=== PATIENT | female | born 1985 | race African-American/Black ===

== ENCOUNTER 2021-12-06 19:21 | Inpatient (IN) ==
[2021-12-06] MEDS ORDERED: miSOPROStoL 200 MCG TABLET RECTAL PRN (19:46)
[2021-12-06] MEDS ORDERED: BUTORPHANOL 1 MG/ML VIAL IV PRN (19:46)
[2021-12-06] MEDS ORDERED: TRANEXAMIC ACID 1,000 MG in SODIUM CHLORIDE 0.9% 100 ML IV PRN (19:46)
[2021-12-06] MEDS ORDERED: ACETAMINOPHEN 500 MG TABLET PO PRN (19:46)
[2021-12-06] MEDS ORDERED: ONDANSETRON 4 MG/2 ML VIAL IV PRN (19:46)
[2021-12-06] MEDS ORDERED: CARBOPROST TROMETHAMINE 250 MCG/ML AMP IM PRN (19:46)
[2021-12-06] MEDS ORDERED: LACTATED RINGERS 500 ML IV PRN (19:46)
[2021-12-06] MEDS ORDERED: BUTORPHANOL 2 MG/ML VIAL IV PRN (19:46)
[2021-12-06] MEDS ORDERED: MEPERIDINE 50 MG/1 ML VIAL IV PRN (19:46)
[2021-12-06] MEDS ORDERED: MEPERIDINE 25 MG/1 ML VIAL IV PRN (19:46)
[2021-12-06] MEDS ORDERED: METHYLERGONOVINE 0.2 MG/1 ML AMP IM PRN (19:46)
[2021-12-06] MEDS ORDERED: OXYTOCIN/LR 20 UNIT/1,000 ML BAG IV ONE (19:46)
[2021-12-06 20:17] LABS: Basophils % 0.2 % (0.0-0.8); Eosinophils # 0.1 10*3/uL (0.0-0.87); Eosinophils % 0.9 % (0.00-10.9); Hematocrit 37.2 VOL% (35.7-47.0); Hemoglobin 12.6 GM/DL (12.0-16.0); Immature Granulocytes % 0.3 %; Immature Granulocytes Absolute 0.03 #; Lymphocytes # 2.6 10*3/uL (1.4-4.0); Mean Corpuscular HGB Conc 33.9 GM/DL (32-36); Mean Corpuscular Volume 89.2 FL (87-102); Mean Platelet Volume 9.7 FL (9.6-12.0); Monocytes % 10.5 % (1.7-12.7); Neutrophils % 60.1 % (38.7-73.9); Platelet Count 227 T/CUMM (130-400); Red Blood Count 4.17 MC/CUMM (3.8-5.5); Red Cell Distribution Width 13.6 % (9.3-17.3); White Blood Count 9.4 T/CUMM (4-12)
[2021-12-06 20:37] LABS: Alanine Aminotransferase 15 U/L (13-56); Albumin 2.9 G/DL (3.4-5.0); Alkaline Phosphatase 75 U/L (45-117); Aspartate Amino Transferase 16 U/L (0-37); Bilirubin,Total < 0.39 MG/DL (0.20-1.00); Blood Urea Nitrogen 5 MG/DL (7-18); Calcium 8.9 MG/DL (8.5-10.1); Carbon Dioxide 20 MMOL/L (21-32); Chloride 108 MMOL/L (98-107); Glucose 94 MG/DL (74-106); Osmolality,Calculated 269.8 MOS/KG (273-304); Potassium 3.6 MMOL/L (3.5-5.1); Sodium 137 MMOL/L (136-145); Total Protein 6.6 G/DL (6.4-8.2)
[2021-12-07] MEDS: LACTATED RINGERS 1,000 ML IV SCH ×2 (00:40→04:35)
[2021-12-07] MEDS ORDERED: ePHEDrine 50 MG/ML VIAL IV PRN ×2 (03:52→03:54)
[2021-12-07] MEDS ORDERED: LACTATED RINGERS 500 ML IV ONE (03:52)
[2021-12-07] MEDS ORDERED: FAMOTIDINE 20 MG/2 ML VIAL IV ONE (03:52)
[2021-12-07] MEDS ORDERED: CITRIC ACID/SODIUM CITRATE 30 ML UDCUP PO ONE (03:52)
[2021-12-07] MEDS ORDERED: PROMETHAZINE 25 MG/1 ML VIAL IM ONE (03:54)
[2021-12-07] MEDS ORDERED: hydrOXYzine HCL 25 MG/1 ML VIAL IM PRN (03:54)
[2021-12-07] MEDS ORDERED: NALOXONE 0.4 MG/ML VIAL IV PRN (03:54)
[2021-12-07] MEDS ORDERED: ONDANSETRON 4 MG/2 ML VIAL IV ONE (03:54)
[2021-12-07] MEDS ORDERED: diphenhydrAMINE 50 MG/1 ML VIAL IV PRN ×2 (03:54)
[2021-12-07] MEDS ORDERED: fentaNYL 2 MCG/ROPIV 0.2% EPID 100 ML EPIDURAL SCH (04:00)
[2021-12-07 05:15] LABS: Bacteria,Urine Occasional /HPF (Few); Bilirubin,Urine Negative (Negative); Blood, Urine Negative (Negative); Glucose,Urine (UA) Negative (Negative); Ketones,Urine 5 mg/dL (Negative); Mucus,Urine Few /LPF (Occasional); Nitrite,Urine Negative (Negative); Protein,Urine Negative (Negative); Squamous Epithelial Cell,Urine Occasional /HPF (0-10); Urine Appearance Slightly Hazy (Clear); Urine Color Yellow (Yellow); Urine Specific Gravity 1.015 (1.001-1.035); Urine Urobilinogen < 2.0 eU/dL (<2.0)
[2021-12-07] MEDS ORDERED: OXYTOCIN/LR 20 UNIT/1,000 ML BAG IV ONE ×2 (05:48→14:37)
[2021-12-07] MEDS ORDERED: SODIUM CHLORIDE 0.9% 0 ML IV ONE (05:48)
[2021-12-07] MEDS ORDERED: METHYLERGONOVINE 0.2 MG/1 ML AMP ONE (05:48)
[2021-12-07] MEDS ORDERED: TRANEXAMIC ACID 1,000 MG/10 ML VIAL ONE (05:48)
[2021-12-07] MEDS ORDERED: miSOPROStoL 200 MCG TABLET ONE (05:48)
[2021-12-07] MEDS ORDERED: CARBOPROST TROMETHAMINE 250 MCG/ML AMP IM ONE (05:49)
[2021-12-07] MEDS ORDERED: OXYTOCIN/LR 20 UNIT/1,000 ML BAG IV SCH (09:30)
[2021-12-07 10:21] LABS: Cord Arterial Blood HCO3 22.1 MMOL/L
[2021-12-07 10:24] LABS: Cord Venous Blood PCO2 42.5 MMHG; Cord Venous Blood PO2 38.3
[2021-12-07] MEDS ORDERED: IBUPROFEN 800 MG TABLET PO ONE (12:50)
[2021-12-07] MEDS: DOCUSATE SODIUM 100 MG CAPSULE PO SCH (20:44)
[2021-12-08 05:46] LABS: Basophils % 0.3 % (0.0-0.8); Eosinophils # 0.2 10*3/uL (0.0-0.87); Eosinophils % 1.6 % (0.00-10.9); Hematocrit 34.6 VOL% (35.7-47.0); Hemoglobin 11.6 GM/DL (12.0-16.0); Immature Granulocytes % 0.4 %; Immature Granulocytes Absolute 0.04 #; Mean Corpuscular HGB Conc 33.5 GM/DL (32-36); Mean Corpuscular Volume 90.3 FL (87-102); Mean Platelet Volume 10.2 FL (9.6-12.0); Monocytes % 9.2 % (1.7-12.7); Neutrophils % 61.5 % (38.7-73.9); Platelet Count 211 T/CUMM (130-400); Red Blood Count 3.83 MC/CUMM (3.8-5.5); Red Cell Distribution Width 13.5 % (9.3-17.3)
[2021-12-08] MEDS: DOCUSATE SODIUM 100 MG CAPSULE PO SCH ×2 (09:18→21:17)
[2021-12-09] MEDS: DOCUSATE SODIUM 100 MG CAPSULE PO SCH (09:12)
[2021-12-09 12:05] VITALS: BP 125/84
== END 2021-12-09 14:25 | disposition home or self-care (01) | DRG 560 ==
LOC: N.LDOUT 19:21 → N.LD 19:23 → N.OB 12-07 13:23
PROVIDERS: ADMIT Obstetrics & Gynecology; ATTEND Obstetrics & Gynecology